=== PATIENT | female | born 1930 | race Caucasian/White ===

== ENCOUNTER 2019-05-11 13:40 | Inpatient (IN) | payer OTHER ==
[~2019-05-11] VITALS: Ht 157.5 cm; Wt 80.7 kg
[2019-05-11 13:41] VITALS: BP 193/86
[2019-05-11 14:14] LABS: ABSOLUTE NEUTROPHILS 7.7 thou/uL (1.4-8.2); BASOPHILS 0.8 % (0.0-2.0); EOSINOPHILS 1.4 % (0.0-3.0); HEMOGLOBIN 14.2 gm/dL (12.0-15.0); LYMPHOCYTES 14.4 % (24.0-44.0); MCH 31.6 pg (26.0-34.0); MCHC 33.8 g/dL (28.0-37.0); MCV 93.6 fL (80.0-100.0); MONOCYTES 8.9 % (1.0-8.0); PLATELET COUNT 242 thou/uL (150-400); POLYS 74.5 % (36.0-66.0); RBC 4.48 mil/uL (4.20-5.00); RDW 14.3 % (10.5-14.5); WBC 10.3 thou/uL (4.0-11.0)
[2019-05-11 14:25] LABS: ANION GAP 6 mmol/L (7-16); BUN 14 mg/dL (7-18); CALCIUM 9.1 mg/dL (8.5-10.1); CHLORIDE 106 mmol/L (98-107); CO2 24 mmol/L (21-32); CREATININE 0.9 mg/dL (0.6-1.0); GLUCOSE 96 mg/dL (74-106); SODIUM 136 mmol/L (136-145)
[2019-05-11 14:35] LABS: ALBUMIN 3.4 g/dL (3.4-5.0); DIRECT BILIRUBIN < 0.1 mg/dL (<0.1-0.2); SGOT 37 U/L (15-37); SGPT 14 U/L (30-65); TOTAL BILIRUBIN 0.8 mg/dL (<0.1-1.0); TOTAL PROTEIN 7.8 g/dL (6.4-8.2); TROPONIN-I <0.06 ng/mL (<0.06)
[2019-05-11 14:55] LABS: URINE BILIRUBIN NEGATIVE (Negative); URINE BLOOD TRACE (Negative); URINE CLARITY CLEAR; URINE COLOR YELLOW; URINE GLUCOSE-RANDOM* NEGATIVE (Negative); URINE KETONES NEGATIVE (Negative); URINE LEUKOCYTES-REFLEX TRACE (Negative); URINE NITRITE-REFLEX NEGATIVE (Negative); URINE PROTEIN (DIPSTICK) NEGATIVE (Negative); URINE SPECIFIC GRAVITY 1.025 (1.005-1.035)
[2019-05-11 15:05] LABS: AMP/METHAMP Negative (Negative); BARBITURATES Negative (Negative); BENZODIAZEPINES Negative (Negative); COCAINE Negative (Negative); METHADONE Negative (Negative); OPIATES Negative (Negative); PCP Negative (Negative)
[2019-05-11] MEDS ORDERED: ROSUVASTATIN CAL5 MG PO (16:14)
[2019-05-11] MEDS ORDERED: KLOR-CON 1010 MEQ PO (16:16)
[2019-05-11] MEDS ORDERED: POTASSIUM CHLO10 ME1 PO (16:16)
[2019-05-11] MEDS ORDERED: CARBIDOPA-LEVO1 EAC1 PO (16:19)
[2019-05-11 17:04] VITALS: BP 192/81
[2019-05-11 17:19] VITALS: BP 170/56
--- NOTE | 2019-05-11 20:05 | NUR ---
PT ADMITTED FROM THE ER AT 1800. REPORT RECEIVED FROM NELLY RODGERS. PT ADMISSION COMPLEETED. ALL FORMS SIGNED. PT IS A STAND BY ASSIST x2. PT IS CONFUSSED AND HAD TO HAVE FAMILY MEMBERS COMPLEETE THE ADMISSION. PT. WEARS BRIEFS DUE TO STRESS INCONTINENCE. PT LIVES WITH DAUGHTER THAT IS POST STROKE WITH RESIDUAL AND COULD BENEFIT FROM CASE MANAGMENT TO SPEAK WITH HER TO POSSIBLY ADD SOME HOME HEALTH DUE TO NOT BEING ABLE TO RECEIVE ANY HELP. BED IS IN LOW POSITION, LOCKED, WITH BED ALARM ON. FALL POTOCROL IN PLACE. CALL LIGHT IN REACH. PT IS A&Ox2 to person and place. this is not her base line she is normally A&ox4
[2019-05-11 20:29] VITALS: BP 158/96
[2019-05-12 03:45] VITALS: BP 181/76
[2019-05-12 04:53] LABS: HEMATOCRIT 37.6 % (37.0-47.0); HEMOGLOBIN 12.8 gm/dL (12.0-15.0); MCH 31.7 pg (26.0-34.0); MCHC 34.1 g/dL (28.0-37.0); RBC 4.04 mil/uL (4.20-5.00); RDW 14.3 % (10.5-14.5); WBC 7.7 thou/uL (4.0-11.0)
[2019-05-12 05:06] LABS: CALCIUM 8.3 mg/dL (8.5-10.1); CREATININE 0.8 mg/dL (0.6-1.0)
[2019-05-12 05:08] LABS: POTASSIUM 3.3 mmol/L (3.5-5.1)
[2019-05-12 07:40] VITALS: BP 166/85
--- NOTE | 2019-05-12 08:13 | NUR ---
PT LYING IN BED. DENIES NEED FOR PAIN MEDICINE. NO NEEDS VOICED. RESTING COMFORTABLY. CALL LIGHT WITHIN REACH. FREQUENT OBSERVATION.
[2019-05-12] MEDS ORDERED: CARBIDOPA-LEVO1 EAC5 PO (12:21)
[2019-05-12 16:32] VITALS: BP 152/91
--- NOTE | 2019-05-12 18:21 | NUR ---
Assumed care of pt at 0700. Pt weak and sleepy this am. Morning fed to pt. Incontinent. External female catheter applied. pt's family states pt looks worse and more confused today. Provider called and put in contact with family. IVF infusing. Family agrees that pt needs placement after hospitalization. Fall precautions in place. Will continue to monitor.
[2019-05-12 19:30] VITALS: BP 196/90
[2019-05-13 03:45] VITALS: BP 196/96
[2019-05-13 07:45] VITALS: BP 220/110
--- NOTE | 2019-05-13 07:53 | NUR ---
PT LYING IN BED. DENIES PAIN. RESTING COMFORTABLY. NO NEEDS VOICED. CALL LIGHT WITHIN REACH. FREQUENT OBSERVATION.
--- NOTE | 2019-05-13 13:07 | NUR ---
ASSUMED CARE OF THE PT AT 0700. PT IS INCONTINENT AND LINEN WAS CHANGED 2X TODAY. IV INFILTRATED AND REMOVED. PT IS A&OX4, WAS ABLE TO TELL PLACE AND AND CURRENT EVENTS TO NURSE AND DOCTOR. BP WAS ELEVATED, DOCTOR NOTIFIED, SEE EMAR. BED IN LOWEST POSITION, CALL LIGHT IS WITHIN REACH AND CHAIR IS LOCKED. WILL CONTINUE TO MONITOR THE PT.
--- NOTE | 2019-05-13 13:23 | NUR ---
WOUND CONSULT; ASSMENT OF THIS ELDERLY WOMAN WITH CAREGIVER AND PRESENT. AN AREA UNDER THE RIGHT BREAST. ESCORATION SEEN. ERYTHEMA. RECOMMENDATIONS- 1-APPLY INTERDRY UNDER THE BREAST CHANGE DAILY. 2-LOW AIR LOSS PUMP DISCUSSED WITH STAFF
--- NOTE | 2019-05-13 15:02 | NUR ---
PT ADMITTED RELATED TO CAP AND WEAKNESS. CM REVIEWED CHART AND SPOKE WITH CARE TEAM. CM MET WITH PT AT BEDSIDE THIS DAY. PT IS A&O X4. CM ROLE INTRODUCED. PT INDICATED THAT SHE LIVES IN A HOUSE WITH HER DISABLED DTR. PT INDICATED THERE ARE 2 STEPT TO ENTER HOUSE THROUGH FRONT AND THROUGH GARAGE. PT INDICATED THERE ARE 7 STEPS TO BEDROOMS BUT THAT THEY HAVE A STAIR LIFT. 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 PT INDICATED NO PREVIOUS HH HX. 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 PT INDICATED SHE HOPES TO BE ABLE TO RETURN HOME ONCE MEDICALLY STABLE. CM CALLED AND SPOKE WITH DTR. SHE INDICATED THAT THE ABOVE IS CORRECT. SHE STATED THAT THEY HAVE A BSC IN PT'S ROOM AND THAT SHE NEEDS TO BE ABLE TO WALK SHORT DISTANCES AND TRANSFER INDEPENDENTLY TO BE ABLE TO RETURN HOME. DTR ASKED THAT REFERRALS BE SENT TO [facility] FOR REVIEW FOR POSSIBLE ADMISSION. CM TO FOLLOW INDICATED WITH DC PLANNING.
--- NOTE | 2019-05-13 16:55 | NUR ---
FAXED REFERRAL TO [facility] RECEIVED CONFIRMATION AND LEFT MSG WITH ADM,. FAXED REFERRAL TO [facility] RECEIVED CONFIRMATION AND LEFT MSG WITH HERMAN WILL F/U WITH BOTH FACILITIES IN THE AM.
[2019-05-13 21:06] VITALS: BP 198/68
[2019-05-13 23:49] VITALS: BP 155/58
--- NOTE | 2019-05-14 01:33 | NUR ---
ASSESSMENT COMPLETED.PT'S BP AT START OF SHIFT ELEVATED,THIRD HAND ON DUTY NOTIFIED,NEW ORDER NOTED AND CARRIED OUT,EFFECTIVE SEE EMAR.PT INCONT OF B&B,PERICARE DONE WITH EACH INCONT.PT PULLED HER IV,BLOOD OBSERVED ON PT'S BED ANS GOWN,PT CLEANED UP.EXCORIATION NOTED UNDER HER R BREAST,CLEANED WITH NS,INTERDRY APPLIED.PT RESTING ON HER BED AT THIS TIME.FALL PRECAUTIONS IN PLACE,CALL LIGHT WITHIN REACH.
[2019-05-14 04:20] VITALS: BP 199/82
[2019-05-14 06:49] LABS: CHOLESTEROL 324 mg/dL (<200); HDL CHOLESTEROL 37 mg/dL (>40); LDL CHOLESTEROL 265 mg/dL (<100); TC:HDL 8.8 Ratio (Not establshd); TRIGLYCERIDE 111 mg/dL (<150); VLDL 22 mg/dL (<40)
[2019-05-14 07:36] VITALS: BP 164/57
[2019-05-14 08:38] VITALS: BP 125/56
[2019-05-14 08:45] VITALS: BP 174/60
[2019-05-14 12:25] VITALS: BP 149/51
--- NOTE | 2019-05-14 14:33 | NUR ---
pt is slow to arouse and has had delayed responses to questions. pt is A&O x4 once fully aroused. pt had actue back pain this AM. pt rated back pain a 3/10. pain was releaved with position change. pt has had difficulty swallowing and has been placed on a "honey thick" diet per speech therapy. pt has had increased weakness, facial and eye drouping on the left side. pt did sit up in bed and worked with physical therapy today. pt recieved bed bath and oral care today.
--- NOTE | 2019-05-14 14:57 | NUR ---
I have reviewed and concur with student documentation.
--- NOTE | 2019-05-14 15:18 | NUR ---
SPOKE WITH HERMAN IN ADM SHE RECEIVED UPDATE AND ARCHIE IN ADM DID A BEDSIDE EVAL AND SAID SHE COULD SEE KNOW REASON WHY THEY COULDN'T ACCEPT WHEN MEDICALLY STABLE. SPOKE WITH RUSSELL IN ADM AT [facility] SHE IS LOOKING INTO THE FINANCIAL AND WILL LET ME KNOW IF THEY CAN ACCEPT. DP TO FOLLOW.
--- NOTE | 2019-05-14 16:01 | NUR ---
PATIENT SEEN BY GAEL MACIAS NP WITH DR. SALTER, THIS DATE FOR REHAB CONSULT. PATIENT IS A CANDIDATE FOR ACUTE REHAB. BED AVAILABILITY IS QUESTIONABLE AT THIS TIME. CLINICAL DOCUMENTATION CONSULTANT INFORMED. WILL LIKELY KNOW IF BED IS AVAILABLE TOMORROW. THANK YOU FOR THIS REFERRAL.
--- NOTE | 2019-05-14 16:03 | NUR ---
[facility] INDICATED THE THEY WOULD LIKELY BE ABLE TO ACCEPT PT ONCE MEDICALLY STABLE. [facility] ALSO CONSULTED AND FOLLOWING. PT WAS HAVING ECHO THIS DAY. CM TO FOLLOW INDICATED WITH DC PLANNING.
[2019-05-14 19:30] VITALS: BP 161/71
--- NOTE | 2019-05-14 19:36 | NUR ---
PT ALERT AND ORIENTED TIMES THREE. VSS. PT DENIES PAIN/SOA. PT TOLERATES MEDS AND MEALS. PT UP WITH ASSIST OF TWO. FAMILY AT BEDSIDE. WILL CONTINUE TO MONITOR.
--- NOTE | 2019-05-15 01:57 | NUR ---
PT IS ALERT TO SELF. MOSTLY SLEEPING. WEAK ADMINISTRATIVE FELLOW TO LEFT HAND. INCONTINENT OF BLADDER. REQUIRES HELP WITH REPOSITIONING.HEELS OFFLOADED. ROOM AIR SATTING OKAY.
[2019-05-15 03:10] VITALS: BP 177/67
[2019-05-15 07:55] VITALS: BP 170/63
--- NOTE | 2019-05-15 11:43 | 2DMMODE ---
[address] [address] 2 D/M-MODE ECHOCARDIOGRAM Name: EAMON PATE Room #: 437-P ADM IN M.R.#: [id number] Admission: 05/11/19 Attend Phys: Star Clifton MD Discharge: Date of : [birth year] Report #: [id number] THIS REPORT FOR: cc: Luis Bueno MD, Eric K. MD Lammoglia, Francisco J. MD ~ THIS REPORT FOR: //name// APPROVED REPORT Study performed: 05/15/2019 10:14:34 EXAM: Comprehensive 2D, Doppler, and color-flow Echocardiogram Patient Location: Bedside Room #: 437 Status: routine BSA: 1.82 HR: 90 bpm BP: 177/67 mmHg Rhythm: NSR Other Information Study Quality: Adequate Indications CVA/TIA CAD Hypertension/HDD Echo Enhancing Agent Indication: Rule out Shunt Agent(s) / Amount(s) Used: Agitated Saline 7 cc 2D Dimensions LVOT Diam: 19.96 (18-24mm) IVC: 18.00 mm Volumes Left Atrial Volume (Systole) Single Plane 4CH: 55.52 mL Single Plane 2CH: 44.74 mL LA ESV Index: 29.00 mL/m2 Aortic Valve AoV Peak Murali.: 3.24 m/s [address] [place] [address] 2 D/M-MODE ECHOCARDIOGRAM Name: EAMON PATE Room #: 437-P [facility] IN M.R.#: [id number] Admission: 05/11/19 Attend Phys: Star Clifton MD Discharge: Date of : [birth year] Report #: [id number] AO Peak Gr.: 18.25 mmHg LVOT Max P.32 mmHg AO Mean Gr.: 28.63 mmHg LVOT Mean P.75 mmHg AO V2 Mean: 2.57 m/s LVOT Max V: 1.47 m/s AO V2 VTI: 67.64 cm LVOT Mean V: 0.98 m/s ROSIBEL (VTI): 1.55 cm2 LVOT V1 VTI: 33.60 cm ROSIBEL Vmax: 1.42 cm2 SV (LVOT): 105.09 mL Pulmonary Valve PV Peak Murali.: 1.38 m/s PV Peak Gr.: 7.64 mmHg Tricuspid Valve TR Peak Murali.: 2.67 m/s TR Peak Gr.: 28.46 mmHg PA Pressure: 33.00 mmHg Left Ventricle The left ventricle is normal size. There is normal LV segmental wall motion. There is normal left ventricular wall thickness. Left ventricular systolic function is hyperdynamic. LVEF is >70%. This study is not technically sufficient to allow evaluation of the LV diastolic function. Right Ventricle The right ventricle is normal size. The right ventricular systolic function is normal. Atria The left atrium size is normal. Although suboptimal injection of agitated saline, Interatrial septum is intact without evidence of ASD or PFO. The right atrium size is normal. Aortic Valve The aortic valve is normal in structure. Aortic valve is calcified. No aortic regurgitation is present. Mild to moderate aortic stenosis. Mitral Valve The mitral valve is normal in structure. Mild MAC Mild mitral regurgitation. No evidence of mitral valve stenosis. Tricuspid Valve The tricuspid valve is normal in structure. There is trace tricuspid regurgitation. Estimated PAP 33 mmHg. There is mild pulmonary hypertension. [facility] [place] [address] 2 D/M-MODE ECHOCARDIOGRAM Name: EAMON PATE Room #: 437-P ADM IN M.R.#: [id number] Admission: 05/11/19 Attend Phys: Star Clifton MD Discharge: Date of : [birth year] Report #: [id number] Pulmonic Valve The pulmonary valve is normal in structure. There is no pulmonic valvular regurgitation. Great Vessels The aortic root is normal in size. IVC is normal in size and collapses >50% with inspiration. Pericardium There is no pericardial effusion. <Conclusion> The left ventricle is normal size. LVEF is >70%. The aortic valve is normal in structure. Aortic valve is calcified. Mild to moderate aortic stenosis. No aortic regurgitation is present. The mitral valve is normal in structure. Mild MAC Mild mitral regurgitation. The tricuspid valve is normal in structure. There is trace tricuspid regurgitation. Estimated PAP 33 mmHg. There is mild pulmonary hypertension. The pulmonary valve is normal in structure. There is no pericardial effusion. Although suboptimal injection of agitated saline, Interatrial septum is intact without evidence of ASD or PFO. <ELECTRONICALLY SIGNED> By: Malachi Sanchez MD 05/15/19 1142 [id number] 1142 Malachi Sanchez MD /INF
[2019-05-15 17:06] VITALS: BP 155/63
--- NOTE | 2019-05-15 17:15 | NUR ---
PT ASSESSED AT START OF SHIFT. RESPONDS TO VERBAL STIMULI BUT SLOW. OPENS EYES AND FOLLOWS COMMANDS THE BEST SHE CAN. THERAPY STOOD PT W/ MAX ASSIST AT BEDSIDE. UNABLE TO HELP MUCH. TAKING PO MEDS W/ THICKENED WATER. NO WANTING TO EAT ANYTHING. DTR CALLED FOR PT UPDATE.
[2019-05-15 19:30] VITALS: BP 175/41
[2019-05-16 01:12] VITALS: BP 158/52
--- NOTE | 2019-05-16 02:13 | NUR ---
ASSESSMENT COMPLETED.PT REPOSITIONED WHILE IN BED.PT SLEEPY AT START OF SHIFT,EASILY AROUSABLE.PT INCONT,EXTERNAL CATH IN PLACE.NO BM SO FAR THIS SHIFT.FALL AND SWALLOW PRECAUTIONS IN PLACE.ELEVATED BP NOTED AT START OF SHIFT,SIDE SEAM TENDER NOTIIED,ORDER NOTED AND CARRIED OUT,EFFECTIVE.PO FLUIDS OFFERED TO PT,REF.PT SLEEPING ON HER BED AT THIS TIME.CALL LIGHT WITHIN REACH.
[2019-05-16 04:30] VITALS: BP 180/56
[2019-05-16 07:02] LABS: TSH 80.198 uIU/mL (0.358-3.740)
[2019-05-16 07:40] VITALS: BP 107/48
[2019-05-16 09:02] VITALS: BP 107/48
[2019-05-16 09:35] LABS: HEMATOCRIT 40.7 % (37.0-47.0); HEMOGLOBIN 13.8 gm/dL (12.0-15.0); MCH 31.2 pg (26.0-34.0); MCHC 33.9 g/dL (28.0-37.0); RBC 4.42 mil/uL (4.20-5.00); RDW 14.2 % (10.5-14.5); WBC 9.8 thou/uL (4.0-11.0)
[2019-05-16 09:49] LABS: CALCIUM 8.8 mg/dL (8.5-10.1); CREATININE 0.9 mg/dL (0.6-1.0); TOTAL BILIRUBIN 0.8 mg/dL (<0.1-1.0); TOTAL PROTEIN 7.1 g/dL (6.4-8.2)
[2019-05-16 09:54] LABS: POTASSIUM 2.8 mmol/L (3.5-5.1)
--- NOTE | 2019-05-16 11:01 | NUR ---
WOUND CARE CONSULT; NO WOUNDS IDENTIFIED ONLY AREAS OF PREVIOUS FRICTION SHEARING INJURY TO THE BUTTOCKS BILATERALLY. RECOMMENDATIONS; 1-LOW AIR LOSS PUMP 2-ZGUARD TO BILATERAL BUTTOCKS DAILY/PRN DISCUSSED WITH RN
--- NOTE | 2019-05-16 12:54 | NUR ---
RD RECOMMENDATION: Pt now with poor intake for 5 days of admit, plus a few days GLASS SANDER. If poor po continues with increased sleepiness/decreased alertness, consider placement of temporary feeding tube and initiate EN to help meet nutrition needs. *If EN indicated based on lack of improvement in oral intake, recommend Osmolite 1.5 at starting rate of 25 ml/hr, gradually increasing by 10 ml q 12-24 hrs as tolerated to Goal Rate 45 ml/hr.
--- NOTE | 2019-05-16 14:26 | NUR ---
ASSUMED CARE OF THE PT AT 0700. PTS POTASSIUM WAS 2.8, DOCTOR NOTIFIED. PT GOT UP TO THE BEDSIDE COMMODE WITH 2X MAX ASSIST AND GAIT BELT. PT REFUSED BREAKFAST, IS ON A HONEY THICKENED PUREED DIET, ASPIRATION PRECAUTIONS TAKEN. PER WOUND NURSE BARRIER CREAM TO THE BOTTOM, REDDENED, NO SKIN BREAKAGE. NEW IV L HAND, DRY AND INTACT. BED IN LOWEST POSITION, CALL LIGHT WITHIN REACH AND FALL PRECAUTIONS IN PLACE. WILL CONTINUE TO MONITOR THE PT.
[2019-05-16] MEDS ORDERED: CLOPIDOGREL75 MG PO (14:29)
[2019-05-16] MEDS ORDERED: ASPIRIN325 PO (14:29)
[2019-05-16] MEDS ORDERED: SYNTHROID100 MC1 PO (14:29)
[2019-05-16] MEDS ORDERED: LISINOPRIL20 MG PO (14:29)
[2019-05-16] MEDS ORDERED: LIPITOR 20 MG T20 M1 PO (14:29)
--- NOTE | 2019-05-16 16:24 | NUR ---
PT ACCEPTED TO [facility] ACUTE [facility]PATIENT REHAB THIS DAY. CARE TEAM INDICATED THAT PT IS MEDICALLY STABLE TO DC. PT, DTR, AND GDTR ARE ALL AWARE AND AGREEABLE. NO OTHER CM INTERVETNION INDICATED. CASE CLOSED.
--- NOTE | 2019-05-22 12:34 | EKG ---
[facility] [place] [address] ELECTROCARDIOGRAM REPORT Name: EAMON PATE Room #: 437-P [facility] IN M.R.#: [id number] Admission: 05/11/19 Attend Phys: Star Clifton MD Discharge: 05/16/19 Date of : [birth year] Report #: [id number] THIS REPORT FOR: cc: Luis Bueno MD, Eric K. MD Lammoglia, Francisco J. MD ~ THIS REPORT FOR: //name// [facility] ED Test Date: 2019-05-11 Test Time: 13:47:13 Pat Name: EAMON PATE Department: Room: Gender: F Bowling Ball Molder: GIN : 1930 Requested By: Alpesh Begum Order Number: [id number] MD: Malachi Sanchez Measurements Intervals Rescue Rate: 92 P: MA: QRS: -48 QRSD: 110 T: 84 QT: 394 QTc: 488 Interpretive Statements Atrial flutter LVH with IVCD, LAD and secondary repol abnormality NS ST/T wave changes No previous ECG available for comparison Electronically Signed On 05-11-2019 15:56:19 MANAGEMENT MANAGER by Malachi Sanchez [email or web address] <ELECTRONICALLY SIGNED> By: Malachi Sanchez MD 05/11/19 1556 1347 [id number] Malachi Sanchez MD /EPI
--- NOTE | 2019-05-22 18:31 | HC ---
[facility] [place] [address] CONSULTATION Name: EAMON PATE Room #: 437-P [facility] IN M.R.#: [id number] Admission: 05/11/19 Attend Phys: Star Clifton MD Discharge: 05/16/19 Date of : [birth year] Report #: [id number] THIS REPORT FOR: cc: Luis Bueno MD, Eric K. MD Khosla, Parveen K. MD ~ THIS REPORT FOR: //name// CC: Star Bueno DATE OF SERVICE: 05/13/2019 HISTORY OF PRESENT ILLNESS: An 88-year-old female patient who is not able to provide any history. "I have no family" and as I understand, this patient lives with a daughter who had a stroke and she has not been able to provide much history either. It looks like the patient had altered mental status. She was brought in and an MRI demonstrated 2 strokes. I do not know what her baseline is. Apparently, she is oriented. She does not appear to have any UTI. That is all the history I can get. There are some records, which indicate that this patient does not drive or go shopping and can do simple meal preparation. So I suspect there may be cognitive deficit, but I am not sure how much and I do not know how to find out. REVIEW OF SYSTEMS: Indicate that this patient has been admitted with altered mental status. She had a CT as well as an MRI, which demonstrated a finding of an old stroke. She has a finding consistent with pneumonitis. A 14-point review of system was attempted, but this is all I can get. PAST MEDICAL HISTORY: Unavailable. From all indication, it looks like she may have some cognitive deficit. FAMILY HISTORY: Unavailable. SOCIAL HISTORY: She lives with her daughter who had a stroke and I am not able to confirm her history. PHYSICAL EXAMINATION: Indicate that she is alert, she is responsive, she is able to follow simple commands intermittently, but she is not alert enough to do a good examination. We will try again tomorrow. It looks like she has no meningeal sign. I cannot do a detailed cranial nerve examination, but that was attempted. It does look like she has any focality on either side, but tough examination to carry out. Her blood pressure is 200/100, pulse is 88, and temperature is 98.1. White count is 7.7 and potassium is low at 3.3. Pulses are difficult to feel. There is no edema. She has no thyroid mass. She is reasonably well-developed. She can hear and she can see. [address] [address] CONSULTATION Name: EAMON PATE Room #: 437-P [facility] IN ..#: [id number] Admission: 05/11/19 Attend Phys: Star Clifton MD Discharge: 05/16/19 Date of : [birth year] Report #: [id number] LABORATORY DATA: White count is normal and the imaging studies indicate a stroke. MEDICATIONS: She is on aspirin. For some reason, she is also on carbidopa/levodopa. I suspect she has Parkinson disease, but she does not give me any history in that regard, one way or another. PAST MEDICAL HISTORY: According to her, is negative for stroke. FAMILY HISTORY: Negative for early age stroke. SOCIAL HISTORY: She lives with the daughter who cannot provide much history either. IMPRESSION: Difficult to form in this patient. She has a stroke and that may be contributing to her symptom, but even more likely, this patient has pneumonitis and the altered mental status is most likely secondary to encephalitis and that finding is on the MRI is incidental but need further evaluation. RECOMMENDATIONS: 1. MRA of the head. 2. MRA of the neck. 3. TSH. 4. Vitamin B12 because of memory deficit. 5. Lipid profile. 6. She may need statin therapy. Thank you very much for this referral and if you have any question, please feel free to contact me. <ELECTRONICALLY SIGNED> By: Micah Hoover MD 05/22/19 1831 [id number] Micah Hoover MD /nt
== END 2019-05-16 18:28 | DRG 64 ==
LOC: ER 13:40 → 4S 16:44 → EROBS 16:44 → 4S 16:58 → ENTRNSPT 05-16 18:28 → 4S 05-16 18:28
PROVIDERS: Emergency Medicine; Nurse Practitioner Family; Psychiatry & Neurology Neuromuscular Medicine; ADMIT Hospitalist
DX: I63.9 Cerebral infarction, unspecified (principal); G93.41 Metabolic encephalopathy; J18.9 Pneumonia, unspecified organism; I10 Essential (primary) hypertension; E78.5 Hyperlipidemia, unspecified; I25.10 Atherosclerotic heart disease of native coronary artery without angina pectoris; G47.00 Insomnia, unspecified; M62.84 Sarcopenia; G25.81 Restless legs syndrome; E86.0 Dehydration; E03.9 Hypothyroidism, unspecified; Z95.5 Presence of coronary angioplasty implant and graft; Z79.82 Long term (current) use of aspirin; Z79.899 Other long term (current) drug therapy
CPT/HCPCS: 10102

== ENCOUNTER 2019-05-16 08:56 | Inpatient (IN) | payer OTHER ==
[~2019-05-16] VITALS: Ht 157.5 cm; Wt 80.6 kg
--- NOTE | ~2019-05-16 | HC ---
[facility] [place] [address] CONSULTATION Name: EAMON PATE Room #: 505-P ADM IN M.R.#: [id number] Admission: 05/16/19 Attend Phys: Pedro Arcos MD Discharge: Date of : [birth year] Report #: [id number] THIS REPORT FOR: cc: Luis Bueno MD,Reyes Garcia MD DO ~ CC: Pedro Bueno DATE OF SERVICE: 05/23/2019 PALLIATIVE CARE CONSULTATION REQUESTING PHYSICIAN: Dr. Arcos. CHIEF COMPLAINT: Anorexia and CVA. HISTORY OF PRESENT ILLNESS: The patient is an 88-year-old female who is status post cerebrovascular accident, who is currently on the inpatient unit. Unfortunately, she has had no significant recovery to the state and mostly due to the fact that the patient has had poor p.o. intake. She has had again a cerebrovascular accident. This may be the ultimate cause. She had a right baugh radiata CVA. She has also had significant delirium ever since this time. At this point in time, the patient has not eaten more than 10-15% of her meals. I am requested for consult to discuss whether or not she would like to have a PEG tube and whether or not she would like palliative type options. PAST MEDICAL HISTORY: Cerebrovascular disease, delirium, hyperlipidemia, hypertension, hypothyroidism, coronary artery disease. ALLERGIES: No known drug allergies. SOCIAL HISTORY: The patient lives with her daughter who also has disability, who is next of kin, although she has 3 grandchildren as well. I met one of the grandchildren today in my interview. She is not currently a smoker or drinker. MEDICATIONS: She is on 81 mg of aspirin, Lovenox, hydralazine, Wellbutrin, lisinopril, folic acid, vitamin D2, Norvasc, Plavix, Lipitor, levothyroxine. FAMILY HISTORY: Noncontributory. PAST SURGICAL HISTORY: Unknown at this time and unable to obtain from patient. REVIEW OF SYSTEMS: GENERAL: She denies any recent fevers or chills or recent illness as far as infection. [facility] [address] [place] [address] CONSULTATION Name: EAMON PATE Room #: 505-P [facility] IN M.R.#: [id number] Admission: 05/16/19 Attend Phys: Pedro Arcos MD Discharge: Date of : [birth year] Report #: [id number] HEENT: Denies any visual changes. CARDIOVASCULAR: Denies chest pain. RESPIRATORY: Denies shortness of breath or wheezing. ABDOMEN: Denies nausea, vomiting or constipation. Does report anorexia. PHYSICAL EXAMINATION: VITAL SIGNS: Temperature 36.8, pulse 92, respirations 20, blood pressure 176/65, 95% on room air. GENERAL: The patient is alert, at times, but she is in no acute distress. Poor attention level is noted. HEENT: No scleral icterus. No conjunctival injection. CARDIOVASCULAR: Regular rate and rhythm without murmur. LUNGS: Appear to be clear to auscultation bilaterally. ABDOMEN: Nondistended. Diminished bowel sounds. LABORATORY DATA: These include on 05/22/2019, hemoglobin 12.6. Potassium 3.1, creatinine 0.7. ASSESSMENT AND PLAN: 1. Anorexia. I did discuss approximately 35 minutes of advanced care planning today with granddaughter and with the patient. No decision was made with regards to PEG tube as of yet, although it appeared and initially she is leaning against doing this. I did discuss that family, other family members could be involved and I could reach back with regards to decision making with regards to this. 2. Cerebrovascular disease. Again the contributing to overall factor for the #1 diagnosis, I do feel like we should reach back out and discuss with the entirety of the family with regards to that and with regards to code status and possible future events with this. Thank you very much for this consultation. We will follow up tomorrow to see if any further decisions are made. By: [id number] Reyes Sanchez DO /nt
--- NOTE | ~2019-05-16 | PLAN ---
[facility] [place] [address] REHAB UNIT PLAN OF CARE Name: EAMON PATE Room #: 505-P ADM IN M.R.#: [id number] Admission: 05/16/19 Attend Phys: Pedro Arcos MD Discharge: Date of : [birth year] Report #: [id number] THIS REPORT FOR: //name// CC: Pedro Bueno DATE OF SERVICE: 05/18/2019 PROGRESS NOTE/OVERALL PLAN OF CARE SUBJECTIVE: The patient was seen back today in followup. She was in no distress. Temperature 36.6, pulse 96, respirations 22, blood pressure is 184/65. She has been working in therapies with transfers at a max assist level, gait is not tested. Upper body dressing is dependent, lower body dressing is dependent. In speech therapy, she is on a pureed honey thickened liquid diet. She has severe cognitive deficits. ____ dietary involved. Speech therapy is working with her on this. Her BUN and creatinine have been fine as of yesterday. We are continuing to encourage adequate hydration. ASSESSMENT: 1. 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 2. Left hemiparesis. 3. Dysphagia, on thickened liquids with pureed diet. 4. Hypothyroidism. 5. Community-acquired pneumonia, question of aspiration. 6. Superimposed encephalopathy. 7. Hyperlipidemia. 8. Hypertension. 9. Coronary artery disease. 10. Restless leg syndrome. PLAN: The overall plan of care is based on the preadmission screen, post-admission physician evaluation and information garnered from therapy assessments. 1. Estimated length of stay is probably at least 2-3 weeks. 2. Medical prognosis is reasonably good, although she has had a lower functional level. 3. Anticipated interventions includes the interdisciplinary acute inpatient rehabilitation program. 4. Anticipated functional outcomes would be for the patient to become modified independent with transfers, mobility, ADLs, communication, cognition, swallowing, so she can return back to the home setting. 5. Discharge destination would be back to the home setting where she has been living with the daughter and granddaughter. 6. Expected therapy by discipline includes PT, OT and speech 1 hour per day each five days a week throughout the duration of the acute inpatient [address] [address] REHAB UNIT PLAN OF CARE Name: EAMON PATE Room #: 505-P ADM IN [facility]#: [id number] Admission: 05/16/19 Attend Phys: Pedro Arcos MD Discharge: Date of : [birth year] Report #: [id number] rehabilitation stay. We will be placing an order to encourage p.o. intake and fluids and recheck labs tomorrow morning. By: [id number] Pedro Arcos MD /PMT
[~2019-05-16 08:56] MED LIST: CARBIDOPA-LEVO1 EAC1 PO; CARBIDOPA-LEVO1 EAC5 PO; KLOR-CON 1010 MEQ PO; POTASSIUM CHLO10 ME1 PO; ROSUVASTATIN CAL5 MG PO
[2019-05-16] MEDS ORDERED: CLOPIDOGREL75 MG PO (14:29)
[2019-05-16] MEDS ORDERED: LIPITOR 20 MG T20 M1 PO (14:29)
[2019-05-16] MEDS ORDERED: SYNTHROID100 MC1 PO (14:29)
[2019-05-16] MEDS ORDERED: LISINOPRIL20 MG PO (14:29)
[2019-05-16] MEDS ORDERED: ASPIRIN325 PO (14:29)
--- NOTE | 2019-05-16 19:14 | NUR ---
ASSUMED CARE OF PT AT 1815. NURSE RECEIVED REPORT FROM NURSE ON PREVIOUS UNIT PRIOR TO PT BEING BROUGHT TO UNIT. PT BROUGHT TO UNIT BY VOLUNTEER TRANSPORT. FAMILY AT BEDSIDE. BEDSIDE REPORT GIVEN TO ONCOMING NURSE. MEDICATIONS FAXED TO PHARMACY. FALL PRECAUTIONS IN PLACE. NURSING WILL CONTINUE TO MONITOR.
[2019-05-16 19:29] VITALS: BP 224/83
[2019-05-16 20:00] VITALS: BP 155/60
--- NOTE | 2019-05-16 22:57 | NUR ---
RECEIVED REPORT FROM OFF GOING NURSE JAVIER. SHEREE, NURSE DATA COMMUNICATIONS ANALYST DID ADMIT. PT ASSESSMENT DONE. TOLD BY CIRCUIT COURT JUDGE THAT PT BP WAS 224/86 AT 1930. NELLY HERRERA OBTAINED ORDER FROM CHRISTIAN FOR HYDRALAZINE IV PUSH. PT BP CHECKED AGAIN AT 1999, WAS 155/60 84. HYDRALAZINE HELD. SLEEPING WELL. HOURLY ROUNDING. CALL LIGHT IN REACH. WILL CONTINUE TO MONITOR.
[2019-05-17 07:57] VITALS: BP 214/73
--- NOTE | 2019-05-17 10:45 | NUR ---
chart review. pt up working with ot, unable to visit at this time will cont following as needed for dc needs.
[2019-05-17 13:41] LABS: POTASSIUM 3.8 mmol/L (3.5-5.1)
[2019-05-17 13:43] LABS: CALCIUM 8.9 mg/dL (8.5-10.1); CREATININE 0.8 mg/dL (0.6-1.0)
--- NOTE | 2019-05-17 13:44 | NUR ---
Nutrition: Vitamin D 8.4. REC order vitamin D supplementation.
[2019-05-17 13:49] LABS: RBC 4.5 mil/uL (4.20-5.00); WBC 8.7 thou/uL (4.0-11.0)
[2019-05-17 13:50] LABS: HEMATOCRIT 41.6 % (37.0-47.0); HEMOGLOBIN 14.1 gm/dL (12.0-15.0); MCH 31.4 pg (26.0-34.0); MCV 92.3 fL (80.0-100.0)
[2019-05-17 13:52] LABS: RDW 14.2 % (10.5-14.5)
--- NOTE | 2019-05-17 15:19 | NUR ---
SPIRITUAL CARE CONSULT [id number] WAS COMPLETED BY THIS DROP FORGE OPERATOR .
[2019-05-17 20:00] VITALS: BP 162/88
--- NOTE | 2019-05-17 21:34 | NUR ---
ASSUMED CARE OF PT AT 0715. PT IS A&OX3, BLOOD PRESSURE ELEVATED AND MANAGED WITH IV AND PO MEDICAITONS. PT DENIES PAIN AND PARTICIPATED IN SCHEDULED THERAPIES. PER PT PT IS MAX ASSIST OF 2 TO TRANSFER TO W/C. SIGNIFICANT WEAKNESS TO LEFT SIDE, HR REGULAR, LUNG SOUNDS CLEAR IN ALL LOBES, BOWEL SOUNDS ACTIVE IN ALL QUADRANTS. BARRIER CREAM APPLIED TO SACRUM. REDNESS NOTED TO SKIN FOLDS, CLEANED AND INTERDRY PLACED IN FOLDS. IV TO LEFT HAND AND LEFT CHEST PATENT, DRESSING C/D/I, AND SITE WNL. UP FOR ALL MEALS IN DINING ROOM, MINIMAL INTAKE THIS SHIFT, TAKES SOME SMALL SIPS OF HONEY THICK LIQUIDS WITH NURSING, BUT REFUSES MOST PO INTAKE. NURSING MONITORING FOR S/S OF DEHYDRATION, ORAL MUCOSA IS DRY, ORAL CARES COMPLETED, NO TENTING, URINE OUTPUT ADEQUATE AT THIS TIME. PER REPORT PT HAS NOT HAD BOWEL MOVEMENT SINCE SATURDAY 05/13. BOWEL MEDICATIONS PROVIDED, NO RESULTS AT THIS TIME. FALL PRECAUTIONS IN PLACE AND NURSING WILL CONTINUE TO MONITOR.
--- NOTE | 2019-05-18 03:32 | NUR ---
assumed care at approx 1900 evening 05/17. pt sitting up in dining room with family. assisted pt from w/c to bed with max assist x2. pt incontinent of urine and changed and turned q2. pts speech mumbled. no hs meds due. pt appears to be sleeping soundly with hourly rounding checks. bed alarm on and call light in reach. will continue to monitor.
[2019-05-18 09:00] VITALS: BP 184/65
--- NOTE | 2019-05-18 17:45 | NUR ---
ASSUMED CARE OF PT AT 0715. PT IS A&OX4, BLOOD PRESSURE ELEVATED ON AM CHECK, PT GIVEN ORDERED AM MEDICAITONS AND PRN IV HYDRALAZINE GIVEN PER PERAMETERS, BLOOD PRESSURE 137/51 ON RECHECK. WOUNDS CLEANED AND DRESSED PER ORDERS. IV TO LEFT CHEST AND LEFT HAND PATENT, DRESSINGS C/D/I, SITES WNL. PT ENCOURAGED TO INCREASE NUTRITIONAL AND FLUID INTAKE, STAFF OFFERING HONEY THICK LIQUIDS WHEN IN ROOM. FAMILY AT BEDSIDE THIS EVENING. NURSING ASSISTED PT WITH FEEDING AT MEALS, PT EATING LESS THAN 25% AT ALL MEALS. FALL PRECAUTIONS IN PLACE AND NURSING WILL CONTINUE TO MONITOR.
[2019-05-18 21:38] VITALS: BP 186/74
[2019-05-18 21:57] VITALS: BP 185/79
[2019-05-19 00:05] VITALS: BP 152/62
--- NOTE | 2019-05-19 03:53 | NUR ---
assumed care at approx 1900 evening 05/18. pt lying in bed at change of shift with head of bed elevated. pt given suppository at hs with no results so far. pt assisted with turning and repositioning q 2hrs. pt appears to be sleeping soundly with hourly rounding checks. bed alarm on and call light in reach. will continue to monitor.
--- NOTE | 2019-05-19 09:13 | NUR ---
ASSUMED CARE OF PT AT 0710. PT IS SLEEPY. IS UNABLE TO STAY AWAKE. SHE WAS ABLE TO ANSWER SOME QUESTIONS FOR ME THIS MORNING, BUT IS NOT RESPONDING TO QUESTIONS TO ASSESS HER ORIENTATION STATUS, NOT EVEN HER NAME & . SHE DENIES PAIN OR CONCERNS AT THIS TIME. SHE IS STABLE & IS IN NAD. HER BLOOD PRESSURE WAS 195/81 HR 97 AM & UPON REASSESSMENT WAS 172/74 HR 102 BEFORE ADMINISTRATION OF AM BLOOD PRESSURE MEDS & PRN. THIS NURSE TO REASSESS. SHE IS Q2H MAX ASSIST TURN X2. NEEDS ASSISTANCE WITH FEEDING. SHE TOOK HER MEDS WHOLE IN APPLESAUCE WITHOUT DIFFICULTY. HOWEVER, SHE REFUSES TO EAT ARE DRINK. THIS NURSE OFFERED CREAM OF WHEAT, WAFFLES WITH SYRUP, HONEY THICKENED BEVERARGE, ORANGE JUCIE & ENSURE PUDDING. SHE SPAT IT ALL OUT & REFUSES TO EAT OR DRINK. SHE REFUSED TO FINISH APPLESAUCE THAT WAS GIVEN WITH MEDS. SHE IS UP WITH MAX ASSIST OF 2, GB, WALKER TO CHAIR. FALL PRECAUTIONS & HOURLY ROUNDING CONTINUED THIS SHIFT. VITALS ASSESSED & LABS REVIEWED. PT IS CURRENTLY IN BED WITH HEAD ELEVATED, EYES CLOSED. CALL LIGHT WITHIN REACH. THIS NURSE IS AT BEDSIDE. WILL CONTINUE TO MONITOR & OFFER FLUIDS, PUDDING & APPLESAUCE.
--- NOTE | 2019-05-19 12:26 | NUR ---
PT IS NOT ABLE TO PARTICIPATE OR HELP OUT WITH ANY OF HER CARES. THIS NURSE GAVE THE PT A COMPLETE BED BATH & PT WAS DID NOT OPEN HER EYES. SHE RESPONDS TO TO SOME QUESTIONS, BUT IS COMMUINICATING FULL SENTENCES. SHE IS UNABLE TO SIT UP ON HER OWN WITHOUT FALLING BACKWARD OR TO HER RIGHT SIDE. THE FAMILY SPOKE TO THE DOCTOR REGARDING PT'S STATUS. DOCTOR REPORTED THAT SHE WILL SPEAK WITH REHAB DOCTOR REGARDING PT BEING POSSIBLY DISCHARGED SKILLED D/T INCREASED WEAKNESS. PT IS CURRENTLY IN ROOM SLEEPING. CALL LIGHT WITHIN REACH. WILL CONTINUE TO MONITOR.
[2019-05-19 19:09] VITALS: BP 160/77
--- NOTE | 2019-05-20 01:12 | NUR ---
PT DROWSY, AROUSES EASILY. INCONT OF URINE. TURNED Q2H. PT DENIES PAIN OR DISCOMFORT. BED ALARM ON FOR SAFETY. PT APPEARS TO BE SLEEPING ON HOURLY ROUNDS.
[2019-05-20 07:25] LABS: ABSOLUTE NEUTROPHILS 7.8 thou/uL (1.4-8.2); BASOPHILS 0.6 % (0.0-2.0); EOSINOPHILS 0.5 % (0.0-3.0); HEMATOCRIT 40.5 % (37.0-47.0); HEMOGLOBIN 13.6 gm/dL (12.0-15.0); LYMPHOCYTES 10.1 % (24.0-44.0); MCH 31.4 pg (26.0-34.0); MCHC 33.6 g/dL (28.0-37.0); MCV 93.7 fL (80.0-100.0); MONOCYTES 6.1 % (1.0-8.0); PLATELET COUNT 266 thou/uL (150-400); POLYS 82.7 % (36.0-66.0); RBC 4.32 mil/uL (4.20-5.00); RDW 14.4 % (10.5-14.5); WBC 9.5 thou/uL (4.0-11.0)
[2019-05-20 07:30] LABS: POTASSIUM 3.6 mmol/L (3.5-5.1)
[2019-05-20 08:00] LABS: ALBUMIN 3.3 g/dL (3.4-5.0); CREATININE 0.9 mg/dL (0.6-1.0); MAGNESIUM 2.3 mg/dL (1.8-2.4); PHOSPHORUS 3.3 mg/dL (2.5-4.9); TOTAL BILIRUBIN 0.8 mg/dL (<0.1-1.0); TOTAL PROTEIN 7.4 g/dL (6.4-8.2)
--- NOTE | 2019-05-20 09:25 | NUR ---
cm left snf list in window for pt daughters, mariangel and ngoc. pt unable to pick location to send referral to go skilled. cm spoke with daughter mariangel who stated " she needs medical and rehab for her stoke. she doesnt need to be up there, i don't know who approved her to go up there. i cant look at places i am disabled my self, you will have to call ngoc after he gets off work. active listen, mariangel had very loud voice on phone call, education that information with question and concerns will be passed on to MD and nurse hotel office manager of acute rehab. cm stated bye at end of phone call and daughter just hung up.
--- NOTE | 2019-05-20 17:45 | NUR ---
ASSUMED CARE AT 0700, PT ALERT WITH MINIMAL RESPONSE, NO ACUTE DISTRESS NOTED, HOWEVER PT HAS SHOWED VERY POOR APPETITE, ENCOURAGED ORAL FLUIDS THROUGHOUT SHIFT. VSS BP REGULATED WITH MEDS, O2 ON RA. IV TO L HAND, STATLOCK. PT MAX ASSIST X 2, WITH L SIDE WEAKNESS. TOLERATES MEDS CRUCHED IN APPLESAUCE. INCONTINENT OF BOWEL AND BLADDER, LARGE BM TODAY. ZGUARD TO SACRUM FOR REDNESS. BED IN LOWEST POSITION, CALL LIGHT WITHIN REACH, WILL CONTINUE TO MONITOR PER POC.
[2019-05-20 19:30] VITALS: BP 153/59
--- NOTE | 2019-05-20 23:58 | NUR ---
PT DROWSY, AROUSES EASILY. ORIENTED TO PERSON. EXTERNAL FEMALE CATHETER PLACED AT HS PER FAMILY REQUEST. BP 153/59 AT START OF SHIFT. FLUIDS ENCOURAGED. PT REFUSES MOST OF WHAT IS OFFERRED. PT DENIES PAIN OR DISCOMFORT. BED ALARM ON FOR SAFETY. PT APPEARS TO BE SLEEPING ON HOURLY ROUNDS.
[2019-05-21 06:57] LABS: CALCIUM 9.3 mg/dL (8.5-10.1); CREATININE 0.8 mg/dL (0.6-1.0); POTASSIUM 3.6 mmol/L (3.5-5.1)
[2019-05-21 08:00] VITALS: BP 186/87
--- NOTE | 2019-05-21 10:30 | NUR ---
per EMERGENCY MANAGEMENT COORDINATOR [facility] and [facility] ok prior to acute rehab that family had picked for snf. pnp spoke with daughter mariangel and education provided.
--- NOTE | 2019-05-21 10:46 | NUR ---
LATE ENTRY FOR 05/16/19 AT 1930: PT HAD INCONTINENT VOID AND INCONT BM, AND WAS TOTALLY DEPENDENT FOR ALL CLEANUP. SHE WAS UNAWARE OF INCONTINENCE AND DID NOT ASSIST.
--- NOTE | 2019-05-21 13:05 | NUR ---
DISCHARGE PLANNING. DISCHARGE DATE UNDETERMINED AT THIS TIME PER UNIT CM. NURSING HOME PLACEMENT RECOMMENDED AT DISCHARGE . PATIENT REFERRAL FAXED TO [facility] FOR SNF PLACEMENT. CALL PLACED TO HERMAN TO NOTIFY. HERMAN TO REVIEW AND NOTIFY CM. PATIENT REFERRAL FAXED TO [facility] PER REQUEST. DENIZ TO REVIEW AND NOTIFY CM. AWAITING RESPONSE.
--- NOTE | 2019-05-21 13:14 | NUR ---
Nutrition: Extremely poor oral intake past week despite interventions. Pt dislikes modified diet and is now dehydrated. Starting IVFs. RD will follow for desired POC. SELF STORAGE MANAGER states she would not favor PEG placement in this pt due to decreased QOL. Could consider use of PPN to provide some nutrition as well as hydration for short term. RD to follow
[2019-05-21 14:55] LABS: BASOPHILS 0.7 % (0.0-2.0); EOSINOPHILS 0.3 % (0.0-3.0); HEMATOCRIT 41.1 % (37.0-47.0); HEMOGLOBIN 13.5 gm/dL (12.0-15.0); LYMPHOCYTES 7.1 % (24.0-44.0); MCH 31.3 pg (26.0-34.0); MCHC 32.9 g/dL (28.0-37.0); MCV 95.1 fL (80.0-100.0); MONOCYTES 6.2 % (1.0-8.0); PLATELET COUNT 298 thou/uL (150-400); POLYS 85.7 % (36.0-66.0); RBC 4.32 mil/uL (4.20-5.00); RDW 14.7 % (10.5-14.5); WBC 11.6 thou/uL (4.0-11.0)
[2019-05-21 15:15] LABS: ALBUMIN 3.6 g/dL (3.4-5.0); CALCIUM 9.5 mg/dL (8.5-10.1); CREATININE 0.9 mg/dL (0.6-1.0); MAGNESIUM 2.3 mg/dL (1.8-2.4); POTASSIUM 3.8 mmol/L (3.5-5.1); TOTAL BILIRUBIN 0.8 mg/dL (<0.1-1.0); TOTAL PROTEIN 7.2 g/dL (6.4-8.2)
[2019-05-21 19:12] VITALS: BP 159/63
--- NOTE | 2019-05-21 19:44 | NUR ---
ASSUMED CARE AT 0700, PT ALERT TO PERSON, LETERGIC AT TIMES THROUGHOUT SHIFT. VSS HAS ELEVATED BP CONTROLLED WITH MEDS ESPERANZA AND PRN, O2 ON RA. PT DENIED ANY PAIN OR DISCOMFORT. PT CONTINUES TO HAVE POOR APPETITE, ENCOURAGED FOOD AND FLUIDS THROUGHOUT SHIFT. PT STARTED ON NS 500 ML IV ONE TIME AND THEN D5W AT 75ML/H. TOLERATES MEDS WHOLE IN APPLE SAUCE. MAX ASSIST X 2 PICOT TO W/C. INCONTINENT OF B&B, STOOL SAMPLE NEEDED, LAST BM 05/20/19. LABS DRAWN PER ORDERS. BED IN LOWEST POSITION, CALL LIGHT WITHIN REACH, WILL CONTINUE TO MONITOR PER POC.
--- NOTE | 2019-05-22 03:29 | NUR ---
ASSUMED CARE AT APPROX 1900 EVENING 05/21. PT LYING IN BED WITH HEAD OF BED ELEVATED SLEEPING. IVF INFUSING TO LEFT HAND IV SITE. EXTERNAL CATHETER PLACED. PT ASSISTED WITH TURNING AND REPOSITIONING Q2HRS. PT APPEARS TO BE SLEEPING SOUNDLY WITH HOURLY ROUNDING CHECKS. BED ALARM ON AND CALL LIGHT IN REACH. WILL CONTINUE TO MONITOR.
[2019-05-22 06:18] LABS: ABSOLUTE NEUTROPHILS 7.6 thou/uL (1.4-8.2); BASOPHILS 0.4 % (0.0-2.0); EOSINOPHILS 0.8 % (0.0-3.0); HEMATOCRIT 37.6 % (37.0-47.0); HEMOGLOBIN 12.6 gm/dL (12.0-15.0); LYMPHOCYTES 9.4 % (24.0-44.0); MCH 31.6 pg (26.0-34.0); MCHC 33.5 g/dL (28.0-37.0); MCV 94.3 fL (80.0-100.0); MONOCYTES 8.2 % (1.0-8.0); PLATELET COUNT 243 thou/uL (150-400); POLYS 81.2 % (36.0-66.0); RBC 3.99 mil/uL (4.20-5.00); RDW 14.8 % (10.5-14.5); WBC 9.3 thou/uL (4.0-11.0)
[2019-05-22 06:41] LABS: ALBUMIN 3.3 g/dL (3.4-5.0); CALCIUM 9.2 mg/dL (8.5-10.1); CREATININE 0.7 mg/dL (0.6-1.0); MAGNESIUM 2.3 mg/dL (1.8-2.4); PHOSPHORUS 2.5 mg/dL (2.5-4.9); POTASSIUM 3.1 mmol/L (3.5-5.1); TOTAL BILIRUBIN 0.7 mg/dL (<0.1-1.0); TOTAL PROTEIN 7.1 g/dL (6.4-8.2)
[2019-05-22 07:50] VITALS: BP 175/79
--- NOTE | 2019-05-22 10:49 | NUR ---
cm notified by MD rehab that here is a palliative/hospice consult new order. will cont following as needed for dc needs.
--- NOTE | 2019-05-22 15:40 | H ---
[facility] [place] [address] HISTORY AND PHYSICAL Name: EAMON PATE Room #: 505-P ADM IN M.R.#: [id number] Admission: 05/16/19 Attend Phys: Pedro Arcos MD Discharge: Date of : [birth year] Report #: [id number] THIS REPORT FOR: //name// CC: Pedro Bueno DATE OF SERVICE: 05/16/2019 HISTORY AND PHYSICAL AND POST-ADMISSION PHYSICIAN EVALUATION HISTORY OF PRESENT ILLNESS: The patient is an 88-year-old white female originally presented to [facility] on 05/11/2019 with acute mental status changes, generalized weakness, and was diagnosed with atelectasis and pneumonia. Initial head CT negative, but MRI confirmed acute and subacute cerebrovascular accident with acute/recent areas within the right parietal baugh radiata as well as the left parietal baugh radiata. She did have some uncontrolled hypertension as well as hypothyroidism and was started on replacement. She was noted to have a significant decline in her functional abilities and has now been admitted for acute in-hospital inpatient rehabilitation. PAST MEDICAL HISTORY: Restless leg syndrome for which she took the Sinemet. She had a stent x 2 in 1999, and history of hypertension. MEDICATIONS: Please see the full medication listing. HABITS: No history of tobacco or alcohol abuse. ALLERGIES: No known drug allergies. SOCIAL HISTORY: The patient had been living at home with her daughter who also had a stroke last July, living there as well and a granddaughter who is assisting the patient's daughter. The granddaughter did the driving, shopping errands. Daughter manages finances. The granddaughter was starting to assist with medications. She takes Sinemet for restless leg syndrome, has 2 steps to enter and a stair lift to the second floor. She used a single point cane or a front-wheeled walker. REVIEW OF SYSTEMS: No current complaints of chest pain, shortness of breath, or abdominal discomfort. PHYSICAL EXAMINATION: GENERAL: An 88-year-old white female in no obvious distress. VITAL SIGNS: Last recorded temperature 99, pulse 94, respirations 16, and blood pressure 214/73. The patient is somewhat groggy, but easily arouses. NEUROLOGIC: She is able to converse. There is a definite latency to her [facility] [address] [place] [address] HISTORY AND PHYSICAL Name: EAMON PATE Room #: 505-P [facility] IN M.R.#: [id number] Admission: 05/16/19 Attend Phys: Pedro Arcos MD Discharge: Date of : [birth year] Report #: [id number] responses, but no obvious slurring or dysarthria. No obvious word finding deficits. HEENT: Facies appeared symmetric. CHEST: Sounded clear to auscultation. CARDIOVASCULAR: Regular rate and rhythm. ABDOMEN: Bowel sounds positive, nontender. GENITOURINARY AND RECTAL: Deferred. EXTREMITIES: She has some generalized weakness, but appeared to be weaker on the left upper extremity with antigravity where as right upper extremity was more of a 3+. Lower extremity revealed probably 3+. She has some chronic knee complaints with some degenerative arthritis. No focal calf swelling. Transfers have been max assist of 2. She does have some left lean with fatigue. She might have a depressed left nasolabial fold. ASSESSMENT: An 88-year-old white female with the following problem list: 1. 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 2. Left hemiparesis. 3. Dysphagia, on thickened liquids with pureed diet. 4. Hypothyroidism. 5. Community-acquired pneumonia, question aspiration. 6. Superimposed encephalopathy. 7. Hyperlipidemia. 8. Hypertension. 9. Coronary artery disease. 10. Restless legs syndrome. PLAN: The patient has been admitted for acute in-hospital inpatient rehabilitation. From a postadmission physician evaluation perspective, there are no relevant changes since the preadmission screening. Please see the above noted review of prior and current medical and functional conditions and comorbidities. Please see the patient's previous and current functional status. As far as risk of complications, the patient has multiple medical comorbidities as noted above. Initial plan of care involves the interdisciplinary acute inpatient rehabilitation program. Measurable functional goals would be for the patient to become modified independent with transfers, mobility and ADLs, so she can hopefully return back to her prior living situation. She is at a lower level, but the hope is that she will improve with her basic transfers and mobility. Prognosis is reasonably good. Estimated length of stay probably fairly long at least 3 weeks. Potential barriers would include her multiple medical comorbidities and decreased functional status. <ELECTRONICALLY SIGNED> By: Pedro Arcos MD 05/22/19 1540 [id number] Pedro Arcos MD /nt
--- NOTE | 2019-05-22 18:40 | NUR ---
ASSUMED CARE OF PT AT 0715. PT IS ALERT, VITAL SIGNS ARE STABLE. PT UNABLE TO VERBALLY COMMUNICATE MORE THAN 1-2 WORDS AND COMPREHENTION IS DIFFICULT TO DETERMINE. PT LETHARGIC AND DOES NOT APPEAR TO BE IN PAIN. IV TO LEFT HAND INFILTRATED AT DINNER, REMOVED AND NURSING WILL ATTEMPT TO REINSERT IV WHEN PT IN BED. NO BOWEL MOVEMENT THIS SHIFT, ORDERS TO OBTAIN STOOL SAMPLE PASSED ON TO ONCOMING SHIFT. FAMILY AT BEDSIDE, [facility] CONCERNS ABOUT PT PROGNOSIS AND CONTINUED CARE. DR. LUND VISITED WITH PT THIS AFTERNOON. FALL PRECAUTIONS IN PLACE AND NURSING WILL CONTINUE TO MONITOR.
[2019-05-22 19:10] VITALS: BP 176/65
--- NOTE | 2019-05-22 22:03 | NUR ---
PT ASSESSMENT COMPLETED. PRN HYPERTENSION MEDICATION HELPFUL. PT HAD A VERY HARD TIME SWALLOWING. FAMILY AT BEDSIDE EARLY DURING SHIFT. ASST WITH FREQUENT REPOSITION FOR COMFORT. SLEEPING WELL. WILL CONTINUE TO MONITOR FREQUENTLY.
[2019-05-22 22:05] VITALS: BP 156/62
[2019-05-23 07:02] VITALS: BP 159/70
--- NOTE | 2019-05-23 07:58 | NUR ---
cm visited with family grand daughter at bedside, rt dcp. "family is still talking about what needs to happen. would like referral sent to [facility]. have started medicaid [facility] as well"/grand daughter ngoc .
--- NOTE | 2019-05-23 08:52 | NUR ---
WOUND CARE F/U ASSESS WOUND SKIN STATUS W/ JOB PRESS OPERATORNELLY HERRERA, BUTTOCKS/SACRAL AREA ALL HEALED, NO OPEN WOUNDS, SKIN UNDER R BREAST PINK ~3CM X2CM AREA, PT INCONT OF URINE, ON LOW AIR LOSS PUMP TO BED, WILL SIGN OFF WOUND CARE RECOMMENDATIONS, DUE TO INCONT AT TIMES GENESIS AT NIGHT SUGGESTED PURE WICK CATH, CONT PROTECTIVE CREAM TO BUTTOCKS SACRAL AREA DUE TO INCONT, REMAIN ON LOW AIR LOSS PUMP TO BED, TURN Q 2 HOURS WHEN IN BED, OFF LOADING, CONT INTERDRY TO R BREAST AREA JOB PRESS OPERATOR AWARE
--- NOTE | 2019-05-23 14:33 | NUR ---
APPROACHED BY DR. LUND TO UPDATE CASE MANAGEMENT AFTER HE MET WITH PT AND FAMILY (GRANDDTR ZACHERY [phone] AND DTR LINDA [phone]) WHO INDIACTED TO DR. LUND THEY ARE INTERESTED IN DISCHARGING HOME WITH [facility].
--- NOTE | 2019-05-23 15:39 | NUR ---
FAXED REFERRAL TO [facility] SPOKE WITH REYNA IN INTAKE SHE RECEIVED REFERRAL AND RUDI RN IS REVIEWING AND WILL SPEAK WITH FAMILY TO ARRANGE TIME FOR EVAL. DP TO FOLLOW.
--- NOTE | 2019-05-23 18:39 | NUR ---
ASSUMED CARE OF PT AT 0700. PT IS ALERT, DOES NOT ANSWER ORIENTATION QUESTIONS. VITAL SIGNS ARE STABLE. CONTINUOUS IV FLUIDS RUNNING, IV TO LEFT FOREARM, SITE WNL, DRESSING C/D/I. FAMILY AT BEDSIDE MOST OF SHIFT. DR. LUND ON UNIT THIS AFTERNOON. PLANS TO DISCHARGE PT TO HOME WITH HOSPICE TOMORROW. CODE STATUS CHANGED TO DNR. PT TURNED Q2H, NUTRITION AND HYDRATION OFFERED FOR COMFORT, NO APPARANT PAIN PER PAINAD SCALE. FALL PRECAUTIONS IN PLACE. NURSING WILL CONTIINUE TO MONITOR.
[2019-05-23 21:09] VITALS: BP 186/80
[2019-05-23 23:06] VITALS: BP 165/80
--- NOTE | 2019-05-24 00:16 | NUR ---
PT VERY TIRED THIS EVENING. PT APPEARS COMFORTABLE. MEDS GIVEN ORDERED AND WELL TOLERATED. IVF RUNNING. IV SITE TO LEFT WRIST WNL. ASST WITH FREQUENT REPOSITION FOR COMFORT. PT INC OF LARGE AMOUNTS OF URINE. 0 BM SO FAR DURING SHIFT. APPLIED Z GUARD TO COCCYX AND BUTTOCK. MOUTH CARE PROVIDED. SLEEPING WELL AT THIS TIME. WILL CONTINUE TO MONITOR FREQUENTLY.
[2019-05-24 07:47] VITALS: BP 185/71
--- NOTE | 2019-05-24 10:30 | NUR ---
spoke with olinda with [facility], dme equipment will be delivered to pt home within 2-4 hours."/olinda. information passed on to bedside nurse and granddaughter андрей. transportation stretcher van around 4pm should be ok for eqip to be in home prior to pt getting dc home with hospice.
[2019-05-24 10:40] VITALS: BP 185/71
[2019-05-24] MEDS ORDERED: ASPIR 8181 MG PO (15:06)
[2019-05-24] MEDS ORDERED: LISINOPRIL20 MG PO (15:06)
[2019-05-24] MEDS ORDERED: CLOPIDOGREL75 MG PO (15:06)
[2019-05-24] MEDS ORDERED: LIPITOR 20 MG T20 M1 PO (15:06)
[2019-05-24] MEDS ORDERED: WELLBUTRIN 100100 MG PO (15:06)
[2019-05-24] MEDS ORDERED: BISACODYL10 MG RECTAL (15:06)
--- NOTE | 2019-05-24 15:43 | NUR ---
PT DISCHARGING TODAY TO HOME WITH [facility] FAXED DC ORDERS/SUMMARY TO [facility] RECEIVED CONFIRMATION AND NOTIFIED THEM THAT TRANSPORT ARRANGED WITH [facility] FOR STRETCHER VAN AT 1530.
[2019-05-24 16:09] VITALS: BP 185/71
--- NOTE | 2019-05-24 19:52 | NUR ---
ASSUMED CARE OF PT AT 0700. PT IS ALERT OPENS EYES TO VERBAL STIMULATION. PLANS FOR PT TO DISCHARGE HOME WITH HOSPICE THIS SHIFT. ORDERS FOR DISCHARGE RECEIVED. DISCHARGE MEDICIATONS, INSTRUCTIONS, AND DISCHARGE EDUCATION REVIEWED WITH GRANDDAUGHTER. IV REMOVED PRIOR TO DISCHARGE. ARRANGED TRANSPORT ARRIVED AND TRANSPORTED FROM UNIT AT APPROXIMATELY 1700.
== END 2019-05-24 17:00 | disposition home health service (06) | DRG 56 ==
PROVIDERS: Internal Medicine; Nurse Practitioner Family; ADMIT Physical Medicine & Rehabilitation
DX: I69.354 Hemiplegia and hemiparesis following cerebral infarction affecting left non-dominant side (principal); I63.9 Cerebral infarction, unspecified; J18.9 Pneumonia, unspecified organism; E43 Unspecified severe protein-calorie malnutrition; G93.40 Encephalopathy, unspecified; R13.10 Dysphagia, unspecified; E03.9 Hypothyroidism, unspecified; E78.5 Hyperlipidemia, unspecified; I10 Essential (primary) hypertension; I25.10 Atherosclerotic heart disease of native coronary artery without angina pectoris; G25.81 Restless legs syndrome; Z68.32 Body mass index [BMI] 32.0-32.9, adult; E53.8 Deficiency of other specified B group vitamins; E55.9 Vitamin D deficiency, unspecified; F03.90 Unspecified dementia, unspecified severity, without behavioral disturbance, psychotic disturbance, mood disturbance, and anxiety; R53.81 Other malaise; E66.9 Obesity, unspecified; I35.0 Nonrheumatic aortic (valve) stenosis
CPT/HCPCS: 10112